=== PATIENT | female | born 1995 | race Caucasian/White ===

== ENCOUNTER 2023-12-30 16:27 | Outpatient (CLI) | payer BC ==
[~2023-12-30] VITALS: Ht 170.2 cm; Wt 128.2 kg
[2023-12-30] MEDS ORDERED: LR 1,000 ML IV PRN (16:45)
[2023-12-30] MEDS ORDERED: PRENATAL TABLET PO (16:51)
[2023-12-30 17:00] VITALS: BP 146/87; PULSE 100; TEMP 98.9
[2023-12-30 17:15] LABS: COLLECTION METHOD CLEAN CATCH
[2023-12-30 17:20] LABS: BASO % 0.4 % (0.0-2.0); EOS # 0.1 K/mm3 (0.0-0.7); EOS % 0.7 % (0.0-4.0); GRAN # 7.5 K/mm3 (1.4-6.5); GRAN % 72.6 % (42.2-75.2); LYMPH # 1.9 K/mm3 (1.2-3.4); LYMPH % 18.4 % (20.0-51.0); MEAN CELL VOLUME 84 fl (80.0-100.0); MEAN CORPUSCULAR HEMOGLOBIN 28 pg (27-31); MEAN CORPUSCULAR HGB CONC 34 g/dl (33.0-37.0); MEAN PLATELET VOLUME 11.3 fl (7.4-10.4); MONO # 0.8 K/mm3 (0.1-0.6); MONO % 7.4 % (1.7-9.3); PLATELET COUNT 187 K/mm3 (130-400); RED BLOOD COUNT 4.24 M/mm3 (4.10-5.30); REDCELL DISTRIBUTION WIDTH-CV 14.7 % (11.5-14.5)
[2023-12-30 17:30] VITALS: BP 114/70; PULSE 88
[2023-12-30 17:30] LABS: HEMATOCRIT 35.6 % (37.0-47.0)
[2023-12-30 17:36] LABS: URINE APPEARANCE CLEAR (CLEAR/HAZY); URINE BLOOD NEGATIVE (NEGATIVE); URINE COLOR YELLOW (YELLOW); URINE GLUCOSE NEGATIVE (NEGATIVE); URINE KETONE NEGATIVE (NEGATIVE); URINE NITRATE NEGATIVE (NEGATIVE); URINE PROTEIN(semi-quant) NEGATIVE (NEGATIVE); URINE UROBILINOGEN 0.2 E.U/dL (0.2-1.0)
[2023-12-30 17:38] LABS: ALBUMIN 2.9 gm/dL (3.5-5.0); BILIRUBIN,TOTAL 0.2 mg/dL (0.2-1.2); CALCIUM 9.5 mg/dL (8.4-10.2); CREATININE, serum 0.66 mg/dL (0.57-1.11); POTASSIUM 3.8 mmol/L (3.5-4.5); TOTAL PROTEIN 6.6 gm/dL (6.2-8.1)
[2023-12-30 18:00] VITALS: BP 122/68; PULSE 91
== END 2023-12-30 18:50 | disposition home or self-care (01) ==
LOC: LDRO 16:27
PROVIDERS: Obstetrics & Gynecology
DX: O16.3 Unspecified maternal hypertension, third trimester (principal); Z3A.37 37 weeks gestation of pregnancy